=== PATIENT | female | born 1970 ===

== ENCOUNTER 2018-10-24 16:11 | Emergency (ER) | payer OTHER ==
[~2018-10-24] VITALS: Ht 157.5 cm; Wt 48.5 kg
[~2018-10-24 16:11] MED LIST: COLACE100 MG PO; MIRALAX12 EA PO; ULTRACET PO
== END 2018-10-24 21:53 | disposition home or self-care (01) ==
LOC: ER 16:11
DX: R10.31 Right lower quadrant pain (principal)

== ENCOUNTER 2019-09-28 22:31 | Emergency (ER) | payer OTHER ==
[~2019-09-28] VITALS: Ht 157.5 cm; Wt 56.7 kg
[2019-09-28] MEDS ORDERED: ZOLADEX3.6 MG (22:56)
[2019-09-29] MEDS ORDERED: KETO10TA2 PO (03:36)
== END 2019-09-29 03:29 | disposition home or self-care (01) ==
LOC: ER 22:31
DX: K59.09 Other constipation (principal); R10.31 Right lower quadrant pain

== ENCOUNTER → 2023-11-25 | Emergency (ER) | payer OTHER ==
[~2023-11-25] VITALS: Ht 157.5 cm; Wt 49.9 kg
[~2023-11-25] MED LIST changes: +KETO10TA2 PO; +ZOLADEX3.6 MG
== END | disposition left against medical advice (07) ==
LOC: ER 21:27
DX: Z53.21 Procedure and treatment not carried out due to patient leaving prior to being seen by health care provider (principal)